=== PATIENT | male | born 1945 ===

== ENCOUNTER 2018-02-05 07:30 | Inpatient (IN) | payer OTHER ==
[~2018-02-05] VITALS: Ht 167.6 cm; Wt 90.7 kg
[2018-02-16] MEDS ORDERED: HUM (08:50)
[2018-02-16] MEDS ORDERED: LANTUS (08:50)
[2018-02-16] MEDS ORDERED: AMILODIPINE PO (08:51)
[2018-02-16] MEDS ORDERED: FORTAMET1000 MG PO (08:52)
[2018-02-16] MEDS ORDERED: METOPROLOL SUCC50 MG PO (08:52)
[2018-02-16] MEDS ORDERED: ALTOPREV20 MG PO (08:52)
[2018-02-16] MEDS ORDERED: CARDIDOPA PO (08:53)
[2018-02-16] MEDS ORDERED: ONGLYZA5 MG PO (08:53)
[2018-02-16] MEDS ORDERED: TAMS0.4C PO (08:53)
[2018-02-16] MEDS ORDERED: ARICEPT5 MG PO (08:54)
[2018-02-24] MEDS ORDERED: AMLODIPINE-OLM1 EAC2 PO (08:34)
[2018-02-24] MEDS ORDERED: CARBIDOPA-LEVO1 EAC1 PO (08:36)
[2018-02-25] MEDS ORDERED: DOCUSATE SODIU100 MG PO (11:19)
[2018-02-25] MEDS ORDERED: GABAPENTIN800 MG PO (11:19)
[2018-02-25] MEDS ORDERED: PERCOCET 5-3251 EACH PO (11:20)
[2018-02-25] MEDS ORDERED: CLONAZEPAM1 MG PO (11:20)
[2018-02-25] MEDS ORDERED: AMOX-CLAV 875-1 EACH PO (11:20)
== END 2018-02-25 17:27 | DRG 455 ==
LOC: PED 02-24 04:50 → O/R 02-24 04:50 → SURH 02-24 07:30 → PED 02-24 18:18
PROVIDERS: Orthopaedic Surgery Orthopaedic Surgery of the Spine
PROC: 0SG1071 Fusion of 2 or more Lumbar Vertebral Joints with Autologous Tissue Substitute, Posterior Approach, Posterior Column, Open Approach (ICD-10-PCS; 2018-02-24)
PROC: 0ST20ZZ Resection of Lumbar Vertebral Disc, Open Approach (ICD-10-PCS; 2018-02-24)
PROC: 0SG10AJ Fusion of 2 or more Lumbar Vertebral Joints with Interbody Fusion Device, Posterior Approach, Anterior Column, Open Approach (ICD-10-PCS; 2018-02-24)
PROC: 07DS3ZZ Extraction of Vertebral Bone Marrow, Percutaneous Approach (ICD-10-PCS; 2018-02-24)
PROC: 0SG10A0 Fusion of 2 or more Lumbar Vertebral Joints with Interbody Fusion Device, Anterior Approach, Anterior Column, Open Approach (ICD-10-PCS; principal; 2018-02-24 10:00)
DX: M47.26 Other spondylosis with radiculopathy, lumbar region (principal); M51.16 Intervertebral disc disorders with radiculopathy, lumbar region; M48.061 Spinal stenosis, lumbar region without neurogenic claudication; I10 Essential (primary) hypertension; E11.9 Type 2 diabetes mellitus without complications